=== PATIENT | female | born 1955 | race Caucasian/White ===

== ENCOUNTER 2023-09-23 12:30 | Outpatient (CLI) | payer MEDICARE, OTHER ==
[2023-09-23 17:39] LABS: BASOPHILS # (AUTO) 0.1 10^3/uL (0.0-0.1); BASOPHILS % (AUTO) 0.9 %; EOSINOPHILS # (AUTO) 0.1 10^3/uL (0.0-0.7); EOSINOPHILS % (AUTO) 0.6 %; HCT - HEMATOCRIT 42.7 % (37.0-47.0); HGB - HEMOGLOBIN 13.7 g/dL (12.0-16.0); LYMPHOCYTES # (AUTO) 2.4 10^3/uL (1.5-3.5); LYMPHOCYTES % (AUTO) 29.7 %; MEAN CORPUSCULAR HEMOGLOBIN 27.5 pg (27.0-31.0); MEAN CORPUSCULAR HGB CONC 32.1 g/dL (32.0-36.0); MEAN CORPUSCULAR VOLUME 85.7 fL (81.0-99.0); MEAN PLATELET VOLUME 10.5 fL (7.9-10.8); MONOCYTES # (AUTO) 0.4 10^3/uL (0.0-1.0); MONOCYTES % (AUTO) 4.7 %; NEUTROPHILS # (AUTO) 5.2 10^3/uL (1.5-6.6); NEUTROPHILS % (AUTO) 63.9 %; PLT - PLATELET COUNT 304 10^3/uL (130-450); RED BLOOD COUNT 4.98 10^6/uL (4.20-5.40); WHITE BLOOD COUNT 8.1 x10^3/uL (4.8-10.8)
[2023-09-23 17:53] LABS: ALBUMIN 4.5 g/dL (3.2-5.5); ALBUMIN/GLOBULIN RATIO 1.6 (1.0-2.2); BILIRUBIN,TOTAL 0.7 mg/dL (0.2-1.0); CREATININE 0.6 mg/dL (0.6-1.3); POTASSIUM 3.9 mmol/L (3.5-4.5); TOTAL PROTEIN 7.4 g/dL (6.4-8.9)
[2023-09-23 18:07] LABS: THYROID STIMULATING HORMONE 1.01 uIU/mL (0.34-5.60)
== END 2023-09-23 12:45 | disposition home or self-care (01) ==
LOC: LAB.N 12:30
PROVIDERS: ATTEND Physician Assistant Medical
DX: R53.83 Other fatigue (principal); R10.13 Epigastric pain
CPT/HCPCS: 36415; 80053; 82150; 82607; 82746; 83540; 83690; 84443; 84466; 85025

== ENCOUNTER 2024-02-04 09:12 | Emergency (ER) | payer MEDICARE, OTHER ==
[2024-02-04] MEDS: PROPARACAINE 0.5% OPHTH DROPS 15 ML EACHEYE STA (10:11)
--- NOTE | 2024-02-04 11:05 | ED Physician Documentation ---
History of Present Illness - Stated complaint Stated Complaint: BLURRED VISION - Chief complaint Chief Complaint: Neuro - History obtained from History obtained from: Patient - Additonal information Additional information: The pt comes to the ED with CC of bilateral blurred vision for the past 3 days, worsening. She states that initially, she just had scratchy eyes, and thought it was just allergies. The next day (yesterday), her eyes were "very bloodshot", so she went to her harp maker, and they prescribed her abx drops and allergy drops. The pt states the redness is better, but this morning, she awakened with such an abundance of floaters that she could not find her toothbrush on the bathroom counter, and could hardly see her phone to call her son. She denies pain. No trauma to her eyes. No h/o glaucoma. She has had cataracts. No fever or denominational pain. She wears bifocal glasses. She is otherwise fairly healthy except for HTN. PD PAST MEDICAL HISTORY - Past Medical History Cardiovascular: Hypertension Musculoskeletal: Osteoarthritis - Past Surgical History HEENT: Cataracts - Present Medications Home Medications: Ambulatory Orders Medication Instructions Recorded Confirmed Amlodipine Besylate [Norvasc] 5 mg PO DAILY 02/04/24 02/04/24 - Allergies Allergies/Adverse Reactions: Allergies Allergy/AdvReac Type Severity Reaction Status Date / Time Sulfa (Sulfonamide Allergy Rash Verified 02/04/24 09:34 Antibiotics) - Social History Does the pt smoke?: No Smoking Status: Never smoker Does the pt drink ETOH?: Yes ETOH Use: Wine Does the pt have substance abuse?: No - Immunizations Immunizations are current?: Yes - POLST Patient has POLST: No PD ED PE NORMAL - Vitals Vital signs reviewed: Yes - General General: Alert and oriented X 3, No acute distress, Well developed/nourished - HEENT HEENT: Atraumatic, PERRL, EOMI, Moist mucous membranes, Other (Fluorscein exam neg BL; unable to visualize retina on either side on fundoscopic exam, d/t "cloudiness"; IOP 15 OS, 17 OD with 10 taps each on Tonopen. 20/70 R; unable to see chart L) - Neck Neck: Supple, no meningeal sign - Respiratory Respiratory: No respiratory distress - Derm Derm: Warm and dry - Extremities Extremities: No deformity - Neuro Neuro: No motor deficit, No sensory deficit, Other (Grossly intact otherwise, except visual findings above.) - Psych Psych: Normal mood, Normal affect Results - Vitals Vitals: Oxygen O2 Source Room air PD Medical Decision Making - ED course Complexity details: considered differential, d/w patient, d/w licensed tax consultant ED course: The pt had reported that during the visual acuity exam, She could not see the chart at all, but only "white" with no black letters or definition. I d/w pt that I did not think she has a bilateral retinal detachment, even though I could not visualize either retina, because this would be exceedingly unlikely to happen spontaneously. I was concerned about a possible uveitis, though I was not sure what would be causing it. I discussed the case with Dr. Rainey of ophthalmology in person, and he stated that although his clinic was not open today, he could see the pt in the morning at his clinic for formal exam. He stated we would not do further testing or policy change clerks supervisor until he could see her. I discussed the plan with the pt who was agreeable, and stated she would w ork on a ride to the clinic. We have discussed the usual indications for return. Departure - Departure Disposition: Home, Self Care Clinical Impression: Change in vision Condition: Stable Instructions: Flashes and Floaters Comments: Your eye pressures are normal and there is no evidence of a problem on the surface of your eyes. You do have significantly compromised vision, especially in your left eye but in your right eye also. Your case has been discussed in person with Dr. Rainey, our on-call ticket machine operator. He is not in the office today, as he has been doing operations today, but he will be in the office tommoses mari and would like you to come see him. He has requested that you call his office at [phone], and let his office staff know that you were in the ER today and that the ER doctor spoke with him directly and he would like you to be seen in the office. If you call first thing in the morning, they will give you an appointment time when you may come in. Please start working on a ride to the clinic now so that you can get over there when you need to be there. He says he would like to examine you directly to see what is going on, as this is a bit of an unusual presentation. For now, please continue the eyedrops that you were prescribed. Forms: PCP List Discharge Date/Time: 02/04/24 11:50
[2024-02-04 12:01] VITALS: BP 149/66; O2SAT 99
== END 2024-02-04 11:50 | disposition home or self-care (01) ==
LOC: EDUNIT# → ED 09:12
DX: H53.8 Other visual disturbances (principal); I10 Essential (primary) hypertension; Z79.899 Other long term (current) drug therapy
CPT/HCPCS: 99283; J3490